=== PATIENT | female | born 1980 | race Caucasian/White ===

== ENCOUNTER 2017-06-03 21:19 | Emergency (ER) | payer BC ==
[2017-06-03 21:24] VITALS: BP 142/73
[2017-06-03] MEDS ORDERED: Cephalexin CAP* 500 MG PO ONE ×2 (21:31)
--- NOTE | 2017-06-05 04:22 | UC ---
Brandon Bonner Abhishek, scribed for Bautista Weber MD on 06/03/17 at 2202 . Skin Complaint HPI - HPI Summary HPI Summary: This patient is a 36 year old F presenting to [facility] with a chief complaint of RLE erythema and swelling s/p bee sting since Saturday (06/01/17). The CC is described as "warm" on the medial RLE. The patient rates the pain 3/10 in severity. Symptoms aggravated by nothing. Symptoms alleviated by nothing. Patient reports erythema and swelling has increased since onset, and pruritus. Pt states I may have pushed stinger further in the area. Patient denies fever , allergies to medication. PMHx includes DVT right lower extremity, and left carotid dissection. - History of Current Complaint Chief Complaint: UCSkin Time Seen by Provider: 06/03/17 21:20 Stated Complaint: SKIN COMPLAINT Hx Obtained From: Patient Hx Last Menstrual Period: 05/30/17 Onset/Duration: Lasting Days - 2 days, Still Present Current Severity: Mild Pain Intensity: 3 Pain Scale Used: 0-10 Numeric Location: Other - RLE Character: Swelling, Pruritus, Redness Aggravating Factor(s): Nothing Alleviating Factor(s): Nothing Associated Signs & Symptoms: Negative: Fever - Allergy/Home Medications Allergies/Adverse Reactions: Allergies Allergy/AdvReac Type Severity Reaction Status Date / Time Sertraline Allergy Itching Verified 06/03/17 21:20 Review of Systems Constitutional: Negative Skin: Other - RLE erythema and swelling and pruritis Eyes: Negative ENT: Negative Respiratory: Negative Cardiovascular: Negative Gastrointestinal: Negative Genitourinary: Negative Motor: Negative Neurovascular: Negative Musculoskeletal: Negative Neurological: Negative Psychological: Negative All Other Systems Reviewed And Are Negative: Yes PMH/Surg Hx/FS Hx/Imm Hx - Additional Past Medical History Additional PMH: POSITIVE: DVT NEGATIVE: COPD Other History Of: Anticoagulant Therapy - coumadin 15 mg daily - Surgical History Surgical History: Yes Surgery Procedure, Year, and Place: 11/27/12 AND 2008, Lt carotid artery dissecion 01/05 no surgery on carotid, Rt leg DVTx2 no surgery for these dvt's, appendectomy - Family History Known Family History: Positive: Other - Negative anesthesia, bleeding or clotting disorder - Social History Alcohol Use: Rare Substance Use Type: None Smoking Status (MU): Never Smoked Tobacco - Immunization History Most Recent Influenza Vaccination: season Most Recent Tetanus Shot: 2011 Physical Exam Triage Information Reviewed: Yes Vital Signs: Initial Vital Signs Temp 98 F 06/03/17 21:22 Pulse 69 06/03/17 21:22 Resp 16 06/03/17 21:22 BP 142/73 06/03/17 21:22 Pulse Ox 100 06/03/17 21:22 Vital Signs Reviewed: Yes - Additional Comments General: well-appearing, no pain distress Skin: 4 cm diameter erythema on the RLE slightly warm to the touch, no streaking , no foreign body Head: normal Eyes: EOMI, TERRY ENT: normal Neck: supple, nontender Respiratory: CTA, breath sounds present Cardiovascular: RRR Abdomen: soft, nontender Bowel: present Musculoskeletal: normal, strength/ROM intact Neurological: normal, sensory/motor intact, A&O x3 Psychological: affect/mood appropriate Course/Dx - Course Course Of Treatment: Allergy noted. Pt medications reviewed. Elevated BP noted. - Diagnoses Provider Diagnoses: BEE STING WITH CELLULITIS RIGHT LEG Discharge - Discharge Plan Condition: Stable Disposition: HOME Prescriptions: Cephalexin CAP* [Keflex CAP*] 500 mg PO QID #38 cap Patient Education Materials: Cellulitis (ED), Insect Bite or Sting (ED) Forms: *Gen. Provider Communication, *Work Release Referrals: Crystal José MD [Primary Care Provider] - Additional Instructions: FOLLOW UP WITH YOUR DOCTOR. GET RECHECKED FOR ANY WORSENING OF YOUR CONDITION OR QUESTIONS OR CONCERNS. The documentation as recorded by the Brandon ryder Abhishek accurately reflects the service I personally performed and the decisions made by me, Bautista Weber MD.
== END 2017-06-03 21:40 | disposition home or self-care (01) ==
LOC: UCEAST 21:19
DX: T63.441A Toxic effect of venom of bees, accidental (unintentional), initial encounter (principal); Y92.9 Unspecified place or not applicable; L03.115 Cellulitis of right lower limb
CPT/HCPCS: 99212; A9270-GY; G0463

== ENCOUNTER 2018-11-04 09:12 | Emergency (ER) | payer BC ==
[2018-11-04] MEDS ORDERED: HYDROcodone/ACETAMIN 5-325 MG* 1 TAB PO ONE (09:46)
--- NOTE | 2018-11-04 10:32 | ED ---
Adult Trauma - HPI Summary HPI Summary: Patient is a 37-year-old female presenting to the ED with trauma. She states she fell forward hitting her face/nose. She states she feels she may have tripped. Endorses neck pain to the posterior cervical spine as well as headache. Also endorses pain to the R maxillary area and R side of the nose. Hx of carotid dissection while several years ago. Denies syncope. Denies blurry vision, double vision, confusion, memory loss. - History of Current Complaint Chief Complaint: EDFacialInjury Stated Complaint: FALL/FACIAL INJURY PER EMS Time Seen by Provider: 11/04/18 09:27 Hx Obtained From: Patient Hx Last Menstrual Period: 05/30/17 ?: No Mechanism of Injury: Blunt Trauma Ambulatory at the Scene: Yes Loss of Consciousness: no loss of consciousness Impact: Frontal Pain Intensity: 8 Pain Scale Used: 0-10 Numeric Location: Head Character: Aching Aggravating Factor(s): Nothing Alleviating Factor(s): Ice Associated Signs & Symptoms: Positive: Negative - Allergy/Home Medications Allergies/Adverse Reactions: Allergies Allergy/AdvReac Type Severity Reaction Status Date / Time sertraline AdvReac Itching Verified 11/04/18 09:24 PMH/Surg Hx/FS Hx/Imm Hx Previously Healthy: Yes Endocrine/Hematology History: Reports: Hx Anticoagulant Therapy - coumadin 15 mg daily Denies: Hx Diabetes, Hx Thyroid Disease Cardiovascular History: Reports: Hx Deep Vein Thrombosis - RLE x 2 IN 11/2012 (6 DAYS POST C SECTION) Denies: Hx Congestive Heart Failure, Hx Hypertension, Hx Pacemaker/ICD Respiratory History: Denies: Hx Asthma, Hx Chronic Obstructive Pulmonary Disease (COPD), Other Respiratory Problems/Disorders GI History: Denies: Hx Ulcer, Other GI Disorders History: Denies: Hx Dialysis, Hx Renal Disease Musculoskeletal History: Reports: Other Musculoskeletal History - DVT Sensory History: Reports: Hx Contacts or Glasses, Other Sensory Impairments - dissection of left carotid artery Denies: Hx Hearing Aid Opthamlomology History: Reports: Hx Contacts or Glasses, Other Sensory Impairments - dissection of left carotid artery Psychiatric History: Denies: Hx Panic Disorder - Surgical History Surgery Procedure, Year, and Place: 11/27/12 AND 2008, Lt carotid artery dissecion 01/05 no surgery on carotid, Rt leg DVTx2 no surgery for these dvt's, appendectomy - Immunization History Hx Pertussis Vaccination: No Immunizations Up to Date: Yes Infectious Disease History: No Infectious Disease History: Denies: Hx Clostridium Difficile, Hx Hepatitis, Hx Human Immunodeficiency Virus (HIV), Hx of Known/Suspected MRSA, Hx Shingles, Hx Tuberculosis, Hx Known/ Suspected VRE, Hx Known/Suspected VRSA, History Other Infectious Disease, Traveled Outside the [place] in Last 30 Days - Family History Known Family History: Positive: Other - Negative anesthesia, bleeding or clotting disorder - Social History Occupation: Employed Full-time Lives: With Family Alcohol Use: Rare Hx Substance Use: No Substance Use Type: Reports: None Hx Tobacco Use: No Smoking Status (MU): Never Smoked Tobacco Review of Systems Constitutional: Negative Negative: Fever, Chills, Fatigue, Skin Diaphoresis Negative: Palpitations, Chest Pain Negative: Shortness Of Breath, Cough Genitourinary: Negative Positive: no symptoms reported, see HPI Negative: Arthralgia, Myalgia Positive: Other - .5cm laceration to the R upper labia Neurological: Negative All Other Systems Reviewed And Are Negative: Yes Physical Exam Triage Information Reviewed: Yes Vital Signs On Initial Exam: Initial Vitals Temp Pulse Resp BP Pulse Ox 98.3 F 74 16 140/66 100 11/04/18 09:18 11/04/18 09:18 11/04/18 09:18 11/04/18 09:18 11/04/18 09:18 Vital Signs Reviewed: Yes Appearance: Positive: Well-Appearing, No Pain Distress, Well-Nourished Skin: Positive: Warm, Skin Color Reflects Adequate Perfusion, Other - .5cm laceration Head/Face: Positive: Normal Head/Face Inspection Neck: Positive: Supple, Tenderness @ - bilateral neck without cervical spine tenderness Respiratory/Lung Sounds: Positive: Clear to Auscultation, Breath Sounds Present Cardiovascular: Positive: RRR, Pulses are Symmetrical in both Upper and Lower Extremities. Negative: Leg Edema Left, Leg Edema Right Musculoskeletal: Positive: Strength/ROM Intact Neurological: Positive: Speech Normal Psychiatric: Positive: Normal, Affect/Mood Appropriate AVPU Assessment: Alert Diagnostics - Vital Signs Vital Signs Temp Pulse Resp BP Pulse Ox 11/04/18 09:18 98.3 F 74 16 140/66 100 - Laboratory Lab Statement: Any lab studies that have been ordered have been reviewed, and results considered in the medical decision making process. Adult Trauma Course/Dx - Course Course Of Treatment: Patient is evaluated for facial injury. R sided upper lip swelling with small amount of bleeding to the .5cm laceration. No evidence of nasal bone distortion. CT maxillofacial/cervical spine/brain obtained: Impression shows subtle nondisplaced fracture at the anterior base of the maxilla with extension to the sockets of the right and left medial maxillary incisors. Associated soft tissue swelling of the maxillary oral labia. Subtle buckling fracture at the right nasal bone. 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 Patient endorses pain, but stable. Small .5cm laceration to the R upper oral labia not involving the brenda border. Jet irrigation x 20 ml with NS. 5-0 monocryl absorbable suture to the R upper oral labia with good approximation. Patient is DC'd home with f/u to maxillofacial surgery/dentist and PCP. She is given keflex and pain control. - Diagnoses Differential Diagnosis/HQI/PQRI: Positive: Contusion(s), Laceration(s) Provider Diagnoses: Laceration of lip, Maxillary fracture Discharge - Sign-Out/Discharge Documenting (check all that apply): Patient Departure Patient Received Moderate/Deep Sedation with Procedure: No - Discharge Plan Condition: Stable Disposition: HOME Prescriptions: Cephalexin CAP* [Keflex CAP*] 500 mg PO TID #21 cap oxyCODONE/Acetamin 10/325(NF) [Percocet 10/325 (NF)] 1 tab PO Q6H #12 tab MDD 4 Patient Education Materials: Facial Fracture (ED) Forms: *Work Release Referrals: Crystal José MD [Primary Care Provider] - Mikey Flores MD [Doctor of Dental Medicine] - Additional Instructions: Keflex 3 times daily 7 days Hydrocodone up to 4 times daily as needed for pain not well controlled with ibuprofen Ibuprofen 600mg three times daily Ice to the area Eat soft foods/liquids at this time The suture will dissolve Please also follow up with dentist - Billing Disposition and Condition Condition: STABLE Disposition: Home
[2018-11-04] MEDS ORDERED: Ibuprofen TAB* 600 MG PO ONE (11:18)
[2018-11-04] MEDS ORDERED: Morphine 4 MG/ML VIAL (1 ml) 4 MG/ML VIAL IM ONE (11:54)
[2018-11-04 12:50] VITALS: BP 125/71
== END 2018-11-04 12:50 | disposition home or self-care (01) ==
LOC: ED 09:12
DX: S01.511A Laceration without foreign body of lip, initial encounter (principal); S02.401A Maxillary fracture, unspecified side, initial encounter for closed fracture; S02.2XXA Fracture of nasal bones, initial encounter for closed fracture; W19.XXXA Unspecified fall, initial encounter; Y92.9 Unspecified place or not applicable; Z86.718 Personal history of other venous thrombosis and embolism; Z79.01 Long term (current) use of anticoagulants; Z88.8 Allergy status to other drugs, medicaments and biological substances
CPT/HCPCS: 12011; 70450; 70486; 72125; 96372; 99283; A9270-GY; J2270

== ENCOUNTER 2019-10-20 18:05 | Emergency (ER) | payer BC, OTHER ==
--- OUTSIDE RECORDS SUMMARY | 2019-10-20 20:40 | XMS REPORT | Continuity of Care Document ---
:1980 External Reference #:[id number] Author Name Almaz Jeffries RN [place] [employer] Address [address] [place] [address] Problems Active Problems Provider Date Deep venous thrombosis of peroneal vein Velvet Henry MD Onset: 03/10/2013 Blurring of visual image Erik Sims PA Onset: 03/14/2016 Note: right eye -- work-up neg Social History Type Date Description Comments Sex Unknown Tobacco Use Start: Unknown Never Smoked Cigarettes ETOH Use Rarely consumes alcohol Tobacco Use Start: Unknown Patient has never smoked Smoking Status Reviewed: 09/03/19 Patient has never smoked Seat Belt/Car Seat always uses seat belt Allergies, Adverse Reactions, Alerts Description No Known Drug Allergies Medications Active Medications SIG Qnty Indications Ordering Provider Date Meclizine HCL 1--2 tablet by 30tabs R42 Almaz Jeffries 09/03/2019 25mg mouth at bedtime Cassie RN [place] [employer] Tablets for 5-7 days or till vertigo is gone Aspirin 1 po qd I82.491 Crystal Dodson 07/06/2013 325mg Tablets MD Nadia Immunizations CPT Code Status Date Vaccine Lot # [id number] Given 05/08/2019 Influenza Vac, Quadrivalent, Split, 0.5mL Dosage, [id number] Im Use [id number] Given 06/05/2018 Influenza Vac, Quadrivalent, Split, 0.5mL Dosage, Im Use [id number] Given 12/16/2017 Tdap (Adacel) Ages 7 And Above Only [id number] Given 05/22/2016 Influenza Vac, Quadrivalent, Split, 0.5mL Dosage, Im Use [id number] Given 07/06/2010 Afluria Or Fluvirin Flu Vac Intramuscular [id number] Vital Signs Date Vital Result Comment 09/03/2019 1:16pm Weight 190.00 lb Heart Rate 73 /min BP Systolic 112 mmHg BP Diastolic 71 mmHg Height 66 inches 5'6" BMI (Body Mass Index) 30.7 kg/m2 05/08/2019 10:16am Weight 170.00 lb Heart Rate 56 /min BP Systolic 119 mmHg BP Diastolic 74 mmHg Height 66 inches 5'6" BMI (Body Mass Index) 27.4 kg/m2 Results Description No Information Available Procedures Date Code Description Status 12/20/2017 [id number] Mammogram Completed Medical Devices Description No Information Available Encounters Type Date Location Provider Dx Diagnosis Office Visit 05/08/2019 Addie Almaz Jeffries, S06.0x0D Concussion without 10:20a RN [facility] loss of consciousness, subs encntr Z68.27 Body mass index (BMI) 27.0-27.9, adult R51 Headache F41.9 Anxiety disorder, unspecified Z23 Encounter for immunization Assessments Date Code Description Provider 09/03/2019 R42 Dizziness and giddiness Almaz Jeffries RN [facility] 09/03/2019 R51 Headache Almaz Jeffries, LISA [facility] 05/08/2019 Z23 Encounter for immunization Almaz Jeffries RN MS [facility] 05/08/2019 S06.0x0D Concussion without loss of Almaz Jeffries, LISA [facility] consciousness, subsequent encounter 05/08/2019 Z68.27 Body mass index (BMI) 27.0-27.9, Almaz Jeffries, LISA MS [facility] adult 05/08/2019 R51 Headache Almaz Jeffries, LISA MS [facility] 05/08/2019 F41.9 Anxiety disorder, unspecified Almaz Jeffries, RN MS [facility] 05/08/2019 Z23 Encounter for immunization Almaz Jeffries RN [facility] Plan of Treatment 09/03/2019 - Almaz Jeffries RN [place] [id number] Dizziness and giddinessNew Medication:Meclizine HCL 25 mg - 1--2 tablet by mouth at bedtime for 5-7 days or till vertigo is goneR51 HeadacheComments:persistant, affecting concentration , some improvement since accident but not to baseline yetReferral:Cowdery, Cherry R, Neurology Functional Status Description No Information Available Mental Status Description No Information Available Referrals Refer to Reason for Referral Status Appt Date DaviCherry rodriguez WAS PATIENT THERE AFTER HER CAROTID DISSECTION, Created NOW NEW HEAD INJURY X 1 YR AND ATTENDING CONCUSSION CLINIC AT [facility], WOULD LIKE TO HAVE A FOLLOW UP VISIT STILL HAVING HEADACHES, AND SOME DIZZINESS. 09/14-PER TELLY THEY HAVE REFERAL AND WILL BE CONTACTING PT DIRECTLY WITH IN THE NEXT DAY OR TWO-[address] [place] [address] [phone]
[2019-10-20 20:50] VITALS: BP 142/78
[2019-10-20 21:15] LABS: Influenza A Molecular Negative (Negative); Influenza B Molecular Negative (Negative)
--- NOTE | 2019-10-20 21:30 | UC ---
FLU HPI - History of Current Complaint Chief Complaint: UCRespiratory Stated Complaint: FEVER & BODY ACHES Time Seen by Provider: 10/20/19 21:11 Hx Obtained From: Patient Hx Last Menstrual Period: 10/06/19 Pain Intensity: 5 - Allergy/Home Medications Allergies/Adverse Reactions: Allergies Allergy/AdvReac Type Severity Reaction Status Date / Time sertraline AdvReac Itching Verified 10/20/19 20:50 Home Medications: Home Medications Aspirin TAB* [Aspirin 325 MG TAB*] 325 mg PO DAILY PRN 10/07/13 [History Confirmed 10/20/19] PMH/Surg Hx/FS Hx/Imm Hx Previously Healthy: Yes - Denies significant PMH Other History Of: Anticoagulant Therapy - coumadin 15 mg daily - Surgical History Surgical History: Yes Surgery Procedure, Year, and Place: 11/27/12 AND 2008, Lt carotid artery dissecion 01/05 no surgery on carotid, Rt leg DVTx2 no surgery for these dvt's, appendectomy - Family History Known Family History: Positive: Non-Contributory - Social History Occupation: Employed Full-time Lives: With Family Alcohol Use: Rare Substance Use Type: None Smoking Status (MU): Never Smoked Tobacco - Immunization History Most Recent Influenza Vaccination: season Most Recent Tetanus Shot: 2011 Review of Systems All Other Systems Reviewed And Are Negative: Yes Physical Exam - Summary Physical Exam Summary: GENERAL APPEARANCE: Well developed, well nourished, alert and cooperative, and appears to be in no acute distress. EYES: Conjunctiva clear. No drainage. EARS: External auditory canals and tympanic membranes clear, hearing grossly intact. NOSE: No nasal discharge. THROAT: Pharynx normal No tonsilar inflammation, swelling, exudate, or lesions. Uvula midline. NECK: Neck supple, non-tender without lymphadenopathy. CARDIAC: Normal S1 and S2. No S3, S4 or murmurs. Rhythm is regular. There is no peripheral edema, cyanosis or pallor. Extremities are warm and well perfused. Capillary refill is less than 2 seconds. Peripheral pulses intact. LUNGS: Clear to auscultation without rales, rhonchi, wheezing or diminished breath sounds. ABDOMEN: Positive bowel sounds. Soft, nondistended, nontender. No guarding or rebound. No masses or hepatosplenomegally. MUSKULOSKELETAL: ROM intact to all extremities. No joint erythema or tenderness. Normal muscular development. Normal gait. SKIN: Skin normal color, texture and turgor with no lesions or eruptions. Triage Information Reviewed: Yes Vital Signs: Initial Vital Signs Temp 98.9 F 10/20/19 20:40 Pulse 65 10/20/19 20:40 Resp 14 10/20/19 20:40 BP 142/78 10/20/19 20:40 Pulse Ox 99 10/20/19 20:40 Vital Signs Reviewed: Yes Flu Course/Dx - Differential Dx/Diagnosis Differential Diagnosis/HQI/PQRI: Bronchitis, Influenza, Pneumonia, Upper Respiratory Infection, Other - Chikungunya, dengue fever, zika Provider Diagnosis: Pharyngitis, Diarrhea Discharge ED - Sign-Out/Discharge Documenting (check all that apply): Patient Departure All imaging exams completed and their final reports reviewed: No Studies - Discharge Plan Condition: Stable Disposition: HOME Patient Education Materials: Pharyngitis (ED), Acute Diarrhea (ED) Referrals: Crystal José MD [Primary Care Provider] - 3 Days Additional Instructions: Your rapid strep test in the clinic today was negative. Your symptoms are likely from a viral infection and with your recent travel could include the possibility of mosquito-born viral illness including dengue fever, zika, and chikungunya. Viral infections do not respond to antibiotics and are limited to the treatment of symptoms. Viral infections typically run their course in 7-10 days. Drink plenty of fluids to avoid dehydration especially if you are running any fever. Use salt water gargles several times a day. Take over the counter acetaminophen (Tylenol) or ibuprofen (Advil, Motrin) according to directions as needed for pain or fever. You may also use Chloraseptic spray or Cepacol lonzenges according to directions which contain a numbing medication and can provide some temporary relief from your sore throat. Acute diarrhea typically resolves on its own without treatment over 2-3 days. The most important consideration with diarrhea is avoiding dehydration. Be sure to drink plenty of fluids. Avoid beverages containing caffeine or artificial sweeteners as these can worsen symptoms. Be sure to eat a well balanced diet. Boiled starches and cereals (potatoes, rice , cream of wheat, oatmeal) as well as food such as crackers, toast, bananas, soups and boiled vegetables are usually recommended if you are having watery diarrhea. Be sure to use good hand hygiene to prevent spreading infection. Return here or follow up with your primary care provider in 3-5 days if symptoms persist. Seek immediate medical attention in the emergency room if you have fever greater than 100.5 F despite taking acetaminophen or ibuprofen, are unable to swallow or develop drooling, are unable to open your mouth fully, are unable to eat or drink, have pain that is not relieved with over the counter pain medication, have severe abdominal pain, persistent vomiting, blood in your vomit or stool, you become weak or dizzy, or have any difficulty breathing. - Billing Disposition and Condition Condition: STABLE Disposition: Home
== END 2019-10-20 22:00 | disposition home or self-care (01) ==
LOC: UCEAST 18:05
DX: J02.9 Acute pharyngitis, unspecified (principal); R19.7 Diarrhea, unspecified; I82.401 Acute embolism and thrombosis of unspecified deep veins of right lower extremity; Z88.8 Allergy status to other drugs, medicaments and biological substances; Z79.01 Long term (current) use of anticoagulants
CPT/HCPCS: 87651; 99211; G0463